=== PATIENT | male | born 1975 | race Caucasian/White ===

== ENCOUNTER 2016-07-21 15:36 | Emergency (ER) | payer OTHER ==
--- NOTE | ~2016-07-21 | ER ---
PATIENT'S NAME: GISE[facility] AGE: 40 Y [address] ROOM: [place] [address] LOCATION: [facility] ADMIT DATE: 07/21/2016 ER/Outpatient Report DISCHARGE DATE: 07/21/2016 FAMILY PHYSICIAN: Physician, Unknown ATTENDING PHYSICIAN: Jay Ibarra TIME OF ARRIVAL: 1536 hours. TIME OF EVALUATION: 1538 hours. CHIEF COMPLAINT: Allergic reaction. HISTORY OF PRESENT ILLNESS: The patient is a 40-year-old male who presents to the emergency department today chief complaint of allergic reaction. 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 He was exposed to some cilantro today at work. He was apparently trying a new recipe and there was cilantro in it. He reports of throat closing. He is having some shortness of breath. No nausea, no vomiting, no chest pain. No fevers or chills. Does have some diarrhea. No headache. No abdominal pain. Did take some Benadryl prior to arrival. PAST MEDICAL HISTORY: Hypertension. SURGICAL HISTORY: Hernia, nasal surgery. SOCIAL HISTORY: The patient denies any tobacco use. Reports occasional alcohol use. Denies illicit drug use. ALLERGIES: TO PENICILLIN, SULFA. MEDICATIONS: Metoprolol. PRIMARY CARE DOCTOR: JUSTIN. REVIEW OF SYSTEMS: All systems are reviewed by myself and negative with the exception of those discussed in HPI and past medical history. PHYSICAL EXAMINATION: PATIENT'S NAME: GISELE [facility] AGE: 40 Y [address] ROOM: [place] [address] LOCATION: [facility] ADMIT DATE: 07/21/2016 ER/Outpatient Report DISCHARGE DATE: 07/21/2016 FAMILY PHYSICIAN: Physician, Unknown ATTENDING PHYSICIAN: Jay Ibarra VITAL SIGNS: Blood pressure 133/95, pulse 108, respiratory rate 22, temperature 97.8, oxygen saturation 97% on room air. GENERAL: The patient is a 40-year-old male, who appears in obvious respiratory distress at this time. HEENT: Head is normocephalic, atraumatic. Pupils are equal, round, and reactive to light. Oropharynx is clear. NECK: Supple. There is no nuchal rigidity. CARDIOVASCULAR: Tachycardic. No murmurs, rubs, or gallops. LUNGS: Clear to auscultation bilaterally. No wheezes, rales, or rhonchi. The patient is tachypneic. ABDOMEN: Soft, nontender, and nondistended. No rebound, rigidity, or guarding. MUSCULOSKELETAL: The patient moves all 4 extremities. SKIN: Warm and dry. There are no rashes or lesions noted. LABORATORY DATA AND X-RAYS: None. IMPRESSION: 1. Anaphylaxis. 2. Allergic reaction to cilantro. 3. Initial visit. EMERGENCY DEPARTMENT COURSE: The patient was brought back to the examination room. Seen and evaluated by myself. IV is established. The patient is given 125 mg of Solu-Medrol IV, Benadryl 25 mg of IV, as well as Pepcid 20 mg IV. The patient is given 0.3 mg of epinephrine IM. He is also given a liter of normal saline. The patient is closely observed here in the emergency department. His symptoms have resolved at this time. He was re-evaluated multiple times. His oxygenation does remain stable and blood pressure remained stable. His heart rate was slightly elevated. He does report that he feels much improved. He no longer has any throat swelling. I have written a prescription for epinephrine autoinjector and discussed the use it. I have asked he follows up with primary care doctor in 2-3 days for re-evaluation. I have discussed return to care instructions including worsening symptoms or any other concerns to return to the emergency department as soon as possible. The patient is agreeable and girlfriend is agreeable. They are without further questions at this time. DISPOSITION: The patient is discharged to home in good condition. PATIENT'S NAME: GISELE [facility] AGE: 40 Y [address] ROOM: [place], [place] [address] LOCATION: [facility] ADMIT DATE: 07/21/2016 ER/Outpatient Report DISCHARGE DATE: 07/21/2016 FAMILY PHYSICIAN: Physician, Unknown ATTENDING PHYSICIAN: Jay Ibarra DO KJR/[email or web address] /[id number] d: 07/21/16 1802 t: 07/22/16 1104, OUTPATIENT REPORT
== END 2016-07-21 17:01 | disposition disaster alternative care site (69) ==
LOC: GMED 15:36
DX: T78.09XA Anaphylactic reaction due to other food products, initial encounter (principal); I10 Essential (primary) hypertension; Z88.2 Allergy status to sulfonamides; Z88.0 Allergy status to penicillin
CPT/HCPCS: J0171; J1200; J2930